=== PATIENT | female | born 1945 | race Caucasian/White ===

== ENCOUNTER 2025-09-15 13:45 | Outpatient (RCR) | payer MEDICARE, OTHER, SELFPAY | END 2025-10-29 13:22 | disposition home or self-care (01) | PROVIDERS: PCP Family Medicine; Visit Provider Family Medicine | DX: S22.080D Wedge compression fracture of T11-T12 vertebra, subsequent encounter for fracture with routine healing (principal); M47.816 Spondylosis without myelopathy or radiculopathy, lumbar region; M51.26 Other intervertebral disc displacement, lumbar region; Z51.89 Encounter for other specified aftercare | CPT/HCPCS: 97110; 97161 ==

== ENCOUNTER 2025-09-21 12:41 | Outpatient (CLI) | payer MEDICARE, OTHER, SELFPAY ==
--- NOTE | 2025-09-21 13:37 | P.ANES_ITS ---
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
--- NOTE | 2025-09-21 13:37 | W.ANESCHARGE ---
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
--- NOTE | 2025-09-21 14:53 | W.ANESCHARGE ---
Anesthesia Charges Start Date/Time Anesthesia Start Date: 09/21/25 Anesthesia Start Time: 13:18 Stop Date/Time Anesthesia Stop Date: 09/21/25 Anesthesia Stop Time: 13:28 Summary Extremes of Age - Over 70 or under 1: MDA Coding CPT Codes CPT Codes: ANES UPR GI NDSC PX NOS - 24025 ([id number]) QK - SOFTWARE DESIGNER 2-4 CNCRNT ANES PROC, QX - STORM SASH MAKER SVC W/ MD MED DIRECTION, P3 - PATIENT W/SEVERE SYS DISEASE Additional Codes: Summary - Extremes of Age - Over 70 or under 1: MDA ([id number])
== END 2025-09-21 12:42 | disposition home or self-care (01) ==
LOC: OP CLINIC 12:41
PROVIDERS: PCP Family Medicine; Visit Provider Internal Medicine
DX: D50.9 Iron deficiency anemia, unspecified (principal); K44.9 Diaphragmatic hernia without obstruction or gangrene
CPT/HCPCS: 00731; 43239; 88305; 99100; J2704; J3490